=== PATIENT | female | born 1980 | race Caucasian/White ===

== ENCOUNTER 2016-12-23 04:40 | Emergency (ER) | payer OTHER ==
[2016-12-23 04:53] VITALS: BP 145/85; PULSE 65; RESP 20; TEMP 99.1
[2016-12-23] MEDS ORDERED: KETOROLAC 60 MG/2 ML VIAL IM STA (05:24)
--- NOTE | 2016-12-23 05:27 | ED ---
General Adult HPI - General Chief complaint: Back Pain/Injury Stated complaint: back injury [facility] Time Seen by Provider: 12/23/16 05:19 Source: patient, RN notes reviewed Mode of arrival: ambulatory Limitations: no limitations - History of Present Illness Initial comments: Patient is a pleasant 36-year-old female presenting to the emergency department with lower back pain. Patient does have a history of chronic lower back pain and has had previous MRIs. 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 Patient then suddenly got lower back pain. Discomfort does radiate somewhat down the left leg. No weakness. Normal chemistries retention of bowel or bladder. Symptoms are similar to chronic back problems. Patient does not feel she needs an x-ray. - Related Data Previous Rx's Medication Instructions Recorded Hydrocodone/Acetaminophen [Lyons 2 each PO Q6HR PRN #20 tab 12/23/16 5-325] Ibuprofen [Motrin] 600 mg PO Q6HR PRN #20 tab 12/23/16 Allergies Allergy/AdvReac Type Severity Reaction Status Date / Time Influenza Virus Vaccines Allergy Chest Pain Verified 12/23/16 04:53 Review of Systems ROS Statement: Those systems with pertinent positive or pertinent negative responses have been documented in the HPI. ROS Other: All systems not noted in ROS Statement are negative. Constitutional: Denies: fever Eyes: Denies: eye pain ENT: Denies: ear pain Respiratory: Denies: cough Cardiovascular: Denies: chest pain Endocrine: Denies: fatigue Gastrointestinal: Denies: abdominal pain Genitourinary: Denies: dysuria Musculoskeletal: Reports: back pain Skin: Denies: rash Neurological: Denies: weakness Past Medical History Past Medical History: No Reported History History of Any Multi-Drug Resistant Organisms: None Reported Additional Past Surgical History / Comment(s): right occular decompression. Past Psychological History: No Psychological Hx Reported Smoking Status: Never smoker Past Alcohol Use History: None Reported Past Drug Use History: None Reported General Exam Limitations: no limitations General appearance: alert, in no apparent distress Head exam: Present: atraumatic Eye exam: Present: normal appearance, PERRL ENT exam: Present: normal oropharynx Neck exam: Present: normal inspection Respiratory exam: Present: normal lung sounds bilaterally Cardiovascular Exam: Present: regular rate, normal rhythm Expanded Peripheral pulses: 2+: Dorsalis Pedis (R), Dorsalis Pedis (L) GI/Abdominal exam: Present: soft. Absent: tenderness Extremities exam: Present: normal inspection, other (Straight leg raise negative bilaterally) Back exam: Present: tenderness (Mild tenderness throughout the paralumbar region ) Neurological exam: Present: alert. Absent: motor sensory deficit Psychiatric exam: Present: normal affect, normal mood Skin exam: Present: normal color Course Vital Signs 12/23/16 04:44 Temperature 99.1 F Pulse Rate 65 Respiratory 20 Rate Blood Pressure 145/85 O2 Sat by Pulse 100 Oximetry Disposition Clinical Impression: Low back pain Disposition: HOME SELF-CARE Condition: Stable Instructions: Chronic Back Pain (ED), Acute Low Back Pain (ED) Additional Instructions: Please follow-up with primary care physician in the next couple days for recheck. Please follow-up with [facility]. Return for loss of control of bowel or bladder, fevers, weakness, worsening symptoms or other concerns. Prescriptions: Hydrocodone/Acetaminophen [Lyons 5-325] 2 each PO Q6HR PRN #20 tab PRN Reason: Pain Ibuprofen [Motrin] 600 mg PO Q6HR PRN #20 tab PRN Reason: Pain Referrals: Angella Lloyd MD [STAFF PHYSICIAN] - 1-2 days Time of Disposition: 05:27
== END 2016-12-23 05:41 | disposition home or self-care (01) ==
LOC: EC 04:40
DX: M54.5 Low back pain (principal); Z88.7 Allergy status to serum and vaccine; X50.0XXA Overexertion from strenuous movement or load, initial encounter; Y99.0 Civilian activity done for income or pay; Y92.69 Other specified industrial and construction area as the place of occurrence of the external cause
CPT/HCPCS: 99283; 96372; J1885

== ENCOUNTER → 2016-12-28 | Outpatient (CLI) | payer OTHER ==
--- NOTE | 2016-12-28 11:43 | XR ---
EXAMINATION TYPE: XR lumbar spine 2 or 3V DATE OF EXAM: 12/28/2016 CLINICAL HISTORY: Lifting strain injury 5 days ago with pain. TECHNIQUE: Frontal and lateral images of the lumbar spine are obtained. COMPARISON: None FINDINGS: There are 5 lumbar type vertebral bodies identified. The lumbar spine shows satisfactory alignment without evidence of acute fracture or dislocation. Vertebral body heights and disk space he ights are within normal limits. The overlying soft tissue appears unremarkable. IMPRESSION: No acute fracture or dislocation is seen in the lumbar spine.
== END | disposition home or self-care (01) ==
LOC: RADXRMAIN 11:22
PROVIDERS: ATTEND Emergency Medicine
DX: S39.012A Strain of muscle, fascia and tendon of lower back, initial encounter (principal)
CPT/HCPCS: 72100